=== PATIENT | female | born 1980 | race Caucasian/White ===

== ENCOUNTER 2024-02-04 12:38 | Emergency (ER) | payer OTHER ==
[2024-02-04] MEDS: ONDANSETRON 4 MG/2 ML VIAL IVP STA (13:07)
[2024-02-04] MEDS: MECLIZINE 12.5 MG TABLET PO STA (13:07)
--- NOTE | 2024-02-04 13:08 | ED Physician Documentation ---
History of Present Illness - Stated complaint Stated Complaint: DIZZY, L BREAST PX - Chief complaint Chief Complaint: Neuro - Additonal information Additional information: 43-year-old female with history of hypertension here with dizziness and left breast pain. Patient states that over the past week or so she has had episodes of dizziness which she describes as room spinning like sensation. It is better when she holds still and closes her eyes. She has no focal weakness numbness or tingling. Her gait is unaffected. No recent URI symptoms. Over the last 24 hours or so she has had increasing pain in her left breast. She has had prior left breast pain which [facility] [place] [facility] she had a mammogram which showed a slight abnormality in the follow-up was all normal. She does not feel like this is chest pain or lung pain. No change with exertion or with deep breathing. She says the pain is actually relieved by elevating her left breast. No fevers or chills no prior history of DVT or PE. Review of Systems Constitutional: denies: Fever, Chills Eyes: denies: Loss of vision, Decreased vision Ears: denies: Loss of hearing, Ear pain Nose: denies: Rhinorrhea / runny nose Cardiac: reports: Chest pain / pressure. denies: Palpitations Respiratory: denies: Dyspnea, Cough GI: denies: Abdominal Pain Neurologic: reports: Headache (Mild headache intermittent.). denies: Generalized weakness, Focal weakness, Numbness, Difficulty speaking, Near syncope, Syncope, Seizure, Confused PD PAST MEDICAL HISTORY - Past Medical History Past Medical History: Yes Cardiovascular: Hypertension Respiratory: Asthma - Past Surgical History Past Surgical History: No - Present Medications Home Medications: Ambulatory Orders Medication Instructions Recorded Confirmed Azelastine HCl 1 spray TOP DAILY 02/04/24 02/04/24 Azithromycin [Zithromax] 1 tab PO DAILY #6 tablet 02/04/24 Benazepril HCl [Lotensin] 1 tab PO DAILY 02/04/24 02/04/24 Fluticasone Propion/Salmeterol 1 inh INH DAILY 02/04/24 02/04/24 [Wixela 500-50 Inhub] HYDROcod/ACETAM 5/325 [Watson 5/325] 1 - 2 tab PO Q6H PRN #12 tablet 02/04/24 Montelukast Sodium [Singulair] 1 tab PO DAILY 02/04/24 02/04/24 Ondansetron Odt [Zofran] 4 mg TL Q6H PRN #10 tablet 02/04/24 Pantoprazole Sodium 1 tab PO DAILY 02/04/24 02/04/24 Tiotropium [place] [Spiriva 1 inh INH DAILY 02/04/24 02/04/24 Respimat] amLODIPine [Norvasc] 1 tab PO DAILY 02/04/24 02/04/24 norgestimate-ethinyl estradioL 1 tab PO DAILY 02/04/24 02/04/24 [Norgestimate-Ee 0.25-0.035 mg] - Allergies Allergies/Adverse Reactions: Allergies Allergy/AdvReac Type Severity Reaction Status Date / Time No Known Drug Allergies Allergy Verified 02/04/24 12:41 - Social History Does the pt smoke?: No Smoking Status: Never smoker Does the pt drink ETOH?: No Does the pt have substance abuse?: No - Immunizations Immunizations are current?: Yes - POLST Patient has POLST: No PD ED PE NORMAL - General General: Alert and oriented X 3, No acute distress - HEENT HEENT: Atraumatic, PERRL, EOMI, Ears normal - Neck Neck: Supple, no meningeal sign, No JVD, No bruit - Cardiac Cardiac: RRR, No murmur - Respiratory Respiratory: No respiratory distress - Abdomen Abdomen: Normal bowel sounds, Soft - Derm Derm: Normal color, Warm and dry - Extremities Extremities: No deformity - Neuro Neuro: Alert and oriented X 3, 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 Gait normal. Romberg negative. Walks with stable gait.) - Free text exam Free text exam: Left breast exam chaperoned by special equipment technician, no suspicious lumps or bumps. No swelling or tenderness. Essentially normal exam. Results - Vitals Vitals: Vital Signs - 24 hr 02/04/24 02/04/24 12:41 15:26 Temperature 36.5 C Heart Rate 110 H 91 Respiratory 16 16 Rate Blood Pressure 160/100 H 139/94 H O2 Saturation 100 99 Oxygen O2 Source Room air - Labs Labs: Laboratory Tests 02/04/24 02/04/24 02/04/24 13:11 13:11 13:11 WBC 8.7 RBC 4.86 Hgb 12.7 Hct 39.3 MCV 80.9 L MCH 26.1 L MCHC 32.3 RDW 15.5 H Plt Count 400 MPV 11.1 H Neut # (Auto) 5.2 Lymph # (Auto) 2.6 Henry # (Auto) 0.6 Eos # (Auto) 0.1 Baso # (Auto) 0.1 Absolute Nucleated RBC 0.00 Nucleated RBC % 0.0 Sodium 136 Potassium 3.7 Chloride 105 Carbon Dioxide 25 Anion Gap 6.0 BUN 6 Creatinine 0.6 Estimated GFR (MDRD) 109 Glucose 90 Calcium 9.6 Total Bilirubin 0.2 AST 14 ALT 18 Alkaline Phosphatase 75 Troponin I High Sens < 2.3 L Total Protein 7.4 Albumin 4.0 Globulin 3.4 Albumin/Globulin Ratio 1.2 PD Medical Decision Making - ED course Complexity details: reviewed old records, reviewed results ED course: Reviewed EKG (normal) and CXR: INDICATIONS: cp TECHNIQUE: One view of the chest was acquired. COMPARISON: 04/24/2015 FINDINGS: Surgical changes and devices: None. Lungs and pleura: No pleural effusions or pneumothorax. Mild right greater than left bilateral perihilar opacity and peribronchial thickening. Mediastinum: Mediastinal contours appear normal. Heart size is normal. Bones and chest wall: No suspicious bony lesions. Overlying soft tissues appear unremarkable. IMPRESSION: Bronchopneumonia. She has a benign breast exam, unremarkable EKG normal labs. Chest x-ray does show pneumonia which could absolutely explain her feeling unwell and dizzy. No central cause of vertigo evident. She is given IV fluids Zofran and meclizine with improvement. Heart rate is down into the 90s and her blood pressure is better with the above treatment. gave analgesics for heasdache with improvement, no sign catastrophic [employer] cause. Departure - Departure Clinical Impression: Dizziness Headache Qualifiers: Headache type: other headache syndrome Qualified Code(s): G44.89 - Other headache syndrome Instructions: ED Dizziness UKO, ED Cephalgia Unspecified Prescriptions: HYDROcod/ACETAM 5/325 [Watson 5/325] 1 - 2 tab PO Q6H PRN #12 tablet PRN Reason: Pain Azithromycin [Zithromax] 1 tab PO DAILY #6 tablet Ondansetron Odt [Zofran] 4 mg TL Q6H PRN #10 tablet PRN Reason: Nausea / Vomiting Comments: As I mentioned we do not see any bad cause for your chest discomfort or dizziness. You are neurologic exam is intact and I do not think you have a bad cause of headache such as brain tumor or bleeding in the brain or meningitis. Take the pain medication as needed. The radiologist did call your chest x-ray showing pneumonia, since you do not have a lot of symptoms I would not start antibiotics right away but I will give you prescription for antibiotics for home and should you develop any pulmonary symptoms feel free to go ahead and start on those otherwise lets just do analgesics for the headache. Forms: PCP List
--- NOTE | 2024-02-04 13:13 | XRAY Report ---
PROCEDURE: Chest 1V INDICATIONS: cp TECHNIQUE: One view of the chest was acquired. COMPARISON: 04/24/2015 FINDINGS: Surgical changes and devices: None. Lungs and pleura: No pleural effusions or pneumothorax. Mild right greater than left bilateral perih ilar opacity and peribronchial thickening. Mediastinum: Mediastinal contours appear normal. Heart size is normal. Bones and chest wall: No suspicious bony lesions. Overlying soft tissues appear unremarkable. IMPRESSION: Bronchopneumonia. Reviewed by: Waylon Ford MD on 02/04/2024 1:12 PM PDT Approved by: Waylon Ford MD on 02/04/2024 1:12 PM PDT Station ID: [id number]
[2024-02-04 13:23] LABS: BASOPHILS # (AUTO) 0.1 10^3/uL (0.0-0.1); BASOPHILS % (AUTO) 0.6 %; EOSINOPHILS # (AUTO) 0.1 10^3/uL (0.0-0.7); EOSINOPHILS % (AUTO) 1.4 %; HCT - HEMATOCRIT 39.3 % (37.0-47.0); HGB - HEMOGLOBIN 12.7 g/dL (12.0-16.0); LYMPHOCYTES # (AUTO) 2.6 10^3/uL (1.5-3.5); LYMPHOCYTES % (AUTO) 30.3 %; MEAN CORPUSCULAR HEMOGLOBIN 26.1 pg (27.0-31.0); MEAN CORPUSCULAR HGB CONC 32.3 g/dL (32.0-36.0); MEAN CORPUSCULAR VOLUME 80.9 fL (81.0-99.0); MEAN PLATELET VOLUME 11.1 fL (7.9-10.8); MONOCYTES # (AUTO) 0.6 10^3/uL (0.0-1.0); MONOCYTES % (AUTO) 7.3 %; NEUTROPHILS # (AUTO) 5.2 10^3/uL (1.5-6.6); NEUTROPHILS % (AUTO) 60.1 %; PLT - PLATELET COUNT 400 10^3/uL (130-450); RED BLOOD COUNT 4.86 10^6/uL (4.20-5.40); RED CELL DISTRIBUTION WIDTH 15.5 % (12.0-15.0); WHITE BLOOD COUNT 8.7 x10^3/uL (4.8-10.8)
[2024-02-04 13:41] LABS: ALBUMIN/GLOBULIN RATIO 1.2 (1.0-2.2); BILIRUBIN,TOTAL 0.2 mg/dL (0.2-1.0); CALCIUM 9.6 mg/dL (8.5-10.3); CREATININE 0.6 mg/dL (0.6-1.3); POTASSIUM 3.7 mmol/L (3.5-4.5); TOTAL PROTEIN 7.4 g/dL (6.4-8.9)
[2024-02-04] MEDS: SODIUM CHLORIDE 0.9% 1,000 ML IV STA ×2 (13:44→15:23)
[2024-02-04] MEDS: KETOROLAC 15 MG/ML VIAL IVP STA (15:22)
[2024-02-04] MEDS: METOCLOPRAMIDE 10 MG/2 ML VIAL IVP STA (16:07)
[2024-02-04] MEDS: HYDROcod/ACETAM 5/325 MG TABLET PO STA (16:31)
[2024-02-04 17:25] VITALS: BP 132/88; O2SAT 100
== END 2024-02-04 17:12 | disposition home or self-care (01) ==
LOC: ED 12:38
DX: G44.89 Other headache syndrome (principal); R42 Dizziness and giddiness; I10 Essential (primary) hypertension; Z79.899 Other long term (current) drug therapy; Z79.51 Long term (current) use of inhaled steroids
CPT/HCPCS: 36415; 80053; 84484; 85025; 93005; 96374; 96375; 99284